=== PATIENT | male | born 1970 | race Caucasian/White ===

== ENCOUNTER → 2018-04-19 | Outpatient (CLI) | payer BC ==
[2018-04-19 15:08] LABS: BASO # 0.1 10^3/uL (0.0-0.2); BASO % 0.5 % (0.0-1.0); EOS # 0.3 10^3/uL (0.0-0.50); EOS % 2.7 % (0.0-3.0); HEMATOCRIT 46.4 % (42.0-52.0); HEMOGLOBIN 15.5 g/dl (13.5-17.5); IMMATURE GRANULOCYTE % 0.3 % (0-3.0); LYMPH # 3.4 10^3/uL (1.5-4.5); LYMPH % 28.6 % (24.0-44.0); MEAN CORPUSCULAR HEMOGLOBIN 29.9 pg (27.0-33.0); MEAN CORPUSCULAR HGB CONC 33.4 g/dl (32.0-36.5); MEAN CORPUSCULAR VOLUME 89.6 fl (80.0-96.0); MONO % 8.1 % (0.0-5.0); NEUTROPHILS # 7.1 10^3/uL (1.8-7.7); NEUTROPHILS % 59.8 % (36.0-66.0); PLATELET COUNT, AUTOMATED 333 10^3/uL (150-450); RED BLOOD COUNT 5.18 10^6/uL (4.30-6.10); WHITE BLOOD COUNT 11.8 10^3/uL (4.0-10.0)
[2018-04-19 15:36] LABS: URIC ACID 4.4 MG/DL (3.5-7.2)
== END ==
LOC: M WUC 11:34
DX: M25.761 Osteophyte, right knee (principal); M25.561 Pain in right knee
CPT/HCPCS: 84550

== ENCOUNTER 2021-04-23 14:46 | Emergency (ER) | payer BC, MEDICAID, OTHER, SELFPAY ==
[~2021-04-23] VITALS: Ht 177.8 cm; Wt 102.4 kg
[~2021-04-23 14:46] MED LIST: NO MEDICATIONS
--- OUTSIDE RECORDS SUMMARY | 2021-04-23 14:54 | CCD ---
Author Author [facility] Organization [facility] Address Unknown Phone Unavailable Care Team Providers Care Medtronics Technician Name Role Phone LUCI RENDON MD Unavailable Unavailable LUCI RENDON MD Unavailable Unavailable LUCI RENDON MD Unavailable Unavailable LUCI RENDON MD Unavailable Unavailable LUCI RENDON MD Unavailable Unavailable LUCI RENDON MD Unavailable Unavailable LUCI RENDON MD Unavailable Unavailable LUCI RENDON MD Unavailable Unavailable LUCI RENDON MD Unavailable Unavailable LUCI RENDON MD Unavailable Unavailable LUCI RENDON MD Unavailable Unavailable LUCI RENDON MD Unavailable Unavailable LUCI RENDON MD Unavailable Unavailable LUCI RENDON MD Unavailable Unavailable LUCI RENDON MD Unavailable Unavailable LUCI RENDON MD Unavailable Unavailable [place], Dee Giovanna PA Unavailable Unavailable [place], Dee Giovanna PA Unavailable Unavailable [place], Dee Giovanna PA Unavailable Unavailable [place], Dee Giovanna PA Unavailable Unavailable [place], Dee Giovanna PA Unavailable Unavailable [place], Dee Giovanna PA Unavailable Unavailable [place], Dee Giovanna PA Unavailable Unavailable [place], Dee Giovanna PA Unavailable Unavailable [place], Ede Giovanna PA Unavailable Unavailable [place], Dee Giovanna PA Unavailable Unavailable Re-disclosure Warning The records that you are about to access may contain information from federally-assisted alcohol or drug abuse programs. If such information is present, then the following federally mandated warning applies: This information has been disclosed to you from records protected by federal confidentiality rules (42 CFR part 2). The federal rules prohibit you from making any further disclosure of this information unless further disclosure is expressly permitted by the written consent of the person to whom it pertains or as otherwise permitted by 42 CFR part 2. A general authorization for the release of medical or other information is NOT sufficient for this purpose. The Federal rules restrict any use of the information to criminally investigate or prosecute any alcohol or drug abuse patient.The records that you are about to access may contain highly sensitive health information, the redisclosure of which is protected by Article 27-F of the [facility] Public Health law. If you continue you may have access to information: Regarding HIV / AIDS; Provided by facilities licensed or operated by the [facility] Office of Mental Health; or Provided by the [facility] Office for People With Developmental Disabilities. If such information is present, then the following [facility] mandated warning applies: This information has been disclosed to you from confidential records which are protected by state law. State law prohibits you from making any further disclosure of this information without the specific written consent of the person to whom it pertains, or as otherwise permitted by law. Any unauthorized further disclosure in violation of state law may result in a fine or mcfp sentence or both. A general authorization for the release of medical or other information is NOT sufficient authorization for further disc losure. Allergies and Adverse Reactions Type Description Substance Reaction Status Data Source(s ) Drug allergy No Known Allergies No Known Allergies brettapproved [facility] Primary Care Family History Family Member Name Family Member Gender Family Member Status Date o f Status Description Data Source(s) Unknown Male Problem MEDENT ([facility]) Unknown Unknown Problem [facility] ([facility]) Encounters Encounter Providers Location Date Indications Data Source(s ) Outpatient Attender: LUCI RENDON MD 2020 01:30:00 PM EST - 06/11/2020 11:59:00 PM EST brettapproved [facility] Primary Care Patient discharged. Outpatient Attender: Giovanna avalos 03/26/2020 08:35:00 AM EST [facility] ([facility]) Medications No Information Insurance Providers Payer name Policy type / Coverage type Policy ID Covered republican ID Covered republican's relationship to gomez Policy Gomez Plan Information OTHER B [id number] Self [id number] POMCO U [id number] Self [id number] [place] (pr) Medigap Part B [id number] Family Dependent [id number] OTHER B [id number] Self [id number] 1 OTHER B [id number] Self [id number] OTHER B [id number] Self [id number] [place] BC[place] O [id number] 1 [id number] OTHER B [id number] Self [id number] OTHER B [id number] Self [id number] COMM [id number] Self [id number] COMM [id number] Self [id number] 1 [id number] [id number] OTHER B [id number] Self [id number] Veterans Choice PRG-Vacaa Medigap Part B [id number] Self [id number] [place] [id number] Self [id number] [place]LL[place] BCBS B [id number] S [id number] BCBS/Excellus Commercial [id number] Self [id number] BCBS [place] 306/806 [id number] SP [id number] POMCO [id number] WI2 [id number] [place] Commercial [id number] Family Dependent SELF PAY UNAVAILABLE SP UNAVAILA BLE BCBS LINUS O [id number] SP [id number] Problems, Conditions, and Diagnoses No Information Surgeries/Procedures Procedure Description Date Indications Data Source(s) APPLICATION SHORT ARM SPLINT FOREARM-HAND STATIC 03/26 12:00:00 AM EST MEDENT ([facility]) Results ID Date Data Source [id number] 06/24/2020 12:00:00 AM EST [place] Name Value Range Interpretation Code Description Data Chante rce(s) Supporting Document(s) 2019 Novel Coronavirus RNA Not Detected [facility] by [facility]. Procedure Social History Code Duration Value Status Description Data Source(s ) Smoking 03/26/2020 12:00:00 AM EST Patient has never smoked co mpleted Patient has never smoked MEDENT ([facility]) Vital Signs ID Date Data Source UNK Name Value Range Interpretation Code Description Data Source(s) Systolic blood pressure 153 mm[Hg] 153 mm[Hg] M EDENT ([facility]) Diastolic blood pressure 85 mm[Hg] 85 mm[Hg] MEDENT ([facility]) Body weight 214.00 [lb_av] 214.00 [lb_av] MEDEN T ([facility]) Heart rate 76 /min 76 /min [facility] ([facility]) Respiratory rate 16 /min 16 /min [facility] ( [facility]) Oxygen saturation in Arterial blood by Pulse oximetry 98 % 98 % [facility] ([facility]) Body temperature 98.1 [degF] 98.1 [degF] [facility] ([facility])
[2021-04-23] MEDS ORDERED: ROSU40TA4 PO (14:56)
--- NOTE | 2021-04-23 16:40 | ECGEPIP ---
[facility] - ED Test Date: 2021-04-23 Pat Name: ELSI WELLINGTON Department: Room: - Gender: Male Visual Basic .Net Developer: GUSTABO : 1970 Requested By: Nuzhat Kiser Order Number: [id number] Reading MD: Nuzhat Kiser Measurements Intervals [place] Rate: 81 P: 19 NV: 162 QRS: 29 QRSD: 104 T: 11 QT: 384 QTc: 446 Interpretive Statements Normal sinus rhythm No prior Electronically Signed on 04-23-2021 16:40:06 EST by Nuzhat Kiser
[2021-04-23] MEDS ORDERED: NS 1,000 ML IV ONE (16:55)
[2021-04-23] MEDS ORDERED: PANTOPRAZOLE 40MG VIAL (C9113 PER 1) IV ONE (16:55)
[2021-04-23 17:13] LABS: BASO # 0.1 10^3/uL (0.0-0.2); BASO % 0.8 % (0.0-1.0); EOS # 1.1 10^3/uL (0.0-0.5); EOS % 7.9 % (0.0-3.0); HEMATOCRIT 48.2 % (42.0-52.0); HEMOGLOBIN 16.3 g/dl (13.5-17.5); LYMPH # 3.1 10^3/uL (1.5-5.0); LYMPH % 22.3 % (24.0-44.0); MEAN CORPUSCULAR HGB CONC 33.8 g/dl (32.0-36.5); MEAN CORPUSCULAR VOLUME 88.6 fl (80.0-96.0); MONO # 0.7 10^3/uL (0.0-0.8); MONO % 4.9 % (2.0-8.0); NEUTROPHILS # 8.9 10^3/uL (1.5-8.5); NEUTROPHILS % 63.8 % (36.0-66.0); PLATELET COUNT, AUTOMATED 313 10^3/uL (150-450); RED BLOOD COUNT 5.44 10^6/uL (4.30-6.10)
--- OUTSIDE RECORDS SUMMARY | 2021-04-23 17:19 | CCD ---
Author Author [facility] Organization [facility] Address Unknown Phone Unavailable Care Team Providers Care Promotional Demonstrator Name Role Phone LUCI RENDON MD Unavailable [...] is protected by Article 27-F of the [facility] Public Health law. If you continue you may have access to information: Regarding HIV / AIDS; Provided by facilities licensed or operated by the [facility] Office of Mental Health; or Provided by the [facility] Office for People With Developmental Disabilities. If such information is present, then the following [facility] mandated warning applies: This information has been [...] law may result in a fine or custodial sentence or both. A general authorization for the release of medical or other information is NOT sufficient authorization for further disc losure. Allergies and Adverse Reactions Type Description Substance Reaction Status Data Source(s ) Drug allergy No Known Allergies No Known Allergies Handpay [facility] Primary Care Family History Family Member Name Family Member Gender Family Member Status Date o f Status Description Data Source(s) Unknown Male Problem MEDENT ([facility]) Unknown Unknown Problem [facility] ([facility]) Encounters Encounter Providers Location Date Indications Data Source(s ) Outpatient Attender: LUCI RENDON MD 2020 01:30:00 PM EST - 06/11/2020 11:59:00 PM EST [facility] Primary Care Patient discharged. Outpatient Attender: Giovanna avalos 03/26/2020 08:35:00 AM EST [facility] ([facility]) Medications No Information Insurance Providers Payer name Policy type / Coverage type Policy ID Covered alliance party ID Covered alliance party's relationship to gomez Policy Gomez Plan Information OTHER B [id number] Self [id number] POMCO U [id number] Self [id number] [place] (pr) Medigap Part B [id number] Family Dependent [id number] OTHER B [id number] Self [id number] 1 OTHER B [id number] Self [id number] OTHER B [id number] Self [id number] BCBS [place] BCBS O [id number] OTHER B [id number] Self [id number] OTHER B [id number] Self [id number] COMM [id number] Self [id number] COMM [id number] Self [id number] 1 [facility] MCDO [id number] SP [id number] [id number] BCBS LINUS O [id number] SP [id number] OTHER B [id number] Self [id number] Veterans Choice PRG-Vacaa Medigap Part B [id number] Self [id number] [place] [id number] Self [id number] EXCELL[place] BCBS B [id number] S [id number] BCBS/Excellus Commercial [id number] Self [id number] BCBS OF [place]AT[place] 306/806 [id number] SP [id number] POMCO [id number] WI2 [id number] [employer] Commercial [id number] Family Dependent SELF PAY UNAVAILABLE SP UNAVAILA BLE Problems, Conditions, and Diagnoses No Information Surgeries/Procedures Procedure Description Date Indications Data Source(s) APPLICATION SHORT ARM SPLINT FOREARM-HAND STATIC 03/26 12:00:00 AM EST [facility] Results ID Date Data Source [facility]-[id number] 06/24/2020 12:00:00 AM EST [place] Name Value Range Interpretation Code Description Data Chante rce(s) Supporting Document(s) 2019 Novel Coronavirus RNA Not Detected [facility] This lab was ordered by [facility] and reported by [facility] Covid Manual Uploads. Procedure Social History Code Duration Value Status Description Data Source(s ) Smoking 03/26/2020 12:00:00 AM EST Patient has never smoked co mpleted Patient has never smoked MEDENT ([facility]) Vital Signs ID Date Data Source UNK Name Value Range Interpretation Code Description Data Source(s) Systolic blood pressure 153 mm[Hg] 153 mm[Hg] M EDENT ([facility]) Diastolic blood pressure 85 mm[Hg] 85 mm[Hg] MEDENT ([facility]) Heart rate 76 /min 76 /min MEDENT ([facility]) Respiratory rate 16 /min 16 /min [facility] ( [facility]) Oxygen saturation in Arterial blood by Pulse oximetry 98 % 98 % [facility] ([facility]) Body temperature 98.1 [degF] 98.1 [degF] MEDENT ([facility]) Body weight 214.00 [lb_av] 214.00 [lb_av] MEDEN T ([facility])
[2021-04-23 17:42] LABS: ALBUMIN 3.9 GM/DL (3.2-5.2); ALT/SGPT 44 U/L (12-78); BILIRUBIN,DIRECT 0.2 MG/DL (0.0-0.2); BILIRUBIN,TOTAL 0.7 MG/DL (0.2-1.0); BLOOD UREA NITROGEN 13 MG/DL (7-18); CALCIUM LEVEL 9.1 MG/DL (8.5-10.1); CARBON DIOXIDE LEVEL 27 MEQ/L (21-32); CHLORIDE LEVEL 104 MEQ/L (98-107); CREATININE FOR GFR 0.87 MG/DL (0.70-1.30); GLOMERULAR FILTRATION RATE > 60.0 (>60); GLUCOSE, FASTING 85 MG/DL (70-100); LIPASE 100 U/L (73-393); POTASSIUM SERUM 4.1 MEQ/L (3.5-5.1); SODIUM LEVEL 139 MEQ/L (136-145); TOTAL PROTEIN 7.5 GM/DL (6.4-8.2)
--- NOTE | 2021-04-23 17:44 | REP ---
INDICATION: epigastric pain, post prandial. COMPARISON: None. TECHNIQUE: Right upper quadrant sonography. FINDINGS: Scanning through the right upper quadrant of the abdomen demonstrates a normal sized, thin-walled gallbladder without evidence of stone or polyp. Common bile duct is normal measuring 0.3 cm in greatest diameter. No focal liver lesion is seen. Liver size is normal. The pancreas is obscured by abdominal gas. No right renal abnormality is seen. There is no evidence of ascites. The right kidney measures 13.4 x 5.6 x 6.1 cm. IMPRESSION: Negative right upper quadrant sonography. <Electronically signed by Selvin Escamilla > 04/23/21 [id number]
[2021-04-23] MEDS ORDERED: ISOVUE-370 76% 100ML VIAL As Ordered ONE (18:05)
--- NOTE | 2021-04-23 20:17 | REPVR ---
PROCEDURE INFORMATION: Exam: CT Abdomen And Pelvis With Contrast Exam date and time: 04/23/2021 6:48 PM Age: 50 years old Clinical indication: Abdominal pain; Localized; Upper; Additional info: Upper abd pain, leukocytosis, guarding TECHNIQUE: Imaging protocol: Computed tomography of the abdomen and pelvis with contrast. Axial, coronal and sagittal reformatted images were created and reviewed. Radiation optimization: All CT scans at this facility use at least one of these dose optimization techniques: automated exposure control; mA and/or kV adjustment per patient size (includes targeted exams where dose is matched to clinical indication); or iterative reconstruction. Contrast material: ISOVUE 370; Contrast volume: 100 ml; Contrast route: INTRAVENOUS (IV); COMPARISON: GALLBLADDER US 04/23/2021 5:19 PM FINDINGS: Lungs: Minimal linear stranding and groundglass at the lung bases, likely due to atelectasis and/or scarring. Mediastinal space: Mild nonspecific distal esophageal wall thickening, suggesting chronic reflux/esophagitis. Liver: Diffuse hepatic steatosis. Gallbladder and bile ducts: No radiodense gallstones. No biliary ductal dilatation. Pancreas: Unremarkable. Spleen: Unremarkable. Adrenal glands: Normal. No mass. Kidneys and ureters: Left renal cortical scarring. Nonobstructing left renal calculi. No hydronephrosis. Stomach and bowel: Questionable mild nonspecific wall thickening of the duodenal sweep and proximal jejunal loops. No obstruction. No pneumatosis. Appendix: Status post appendectomy. Intraperitoneal space: No free fluid. No organized fluid collection. No free air. Vasculature: Unremarkable. No aneurysm. Lymph nodes: No pathologically enlarged lymph nodes. Urinary bladder: Mild circumferential urinary bladder wall thickening, likely secondary to underdistention. Reproductive: Unremarkable. Bones/joints: No acute osseous abnormality. Osteopenia. Mild degenerative changes. Soft tissues: Small, fat containing umbilical hernia. IMPRESSION: 1. Questionable mild nonspecific wall thickening of the duodenal sweep and proximal jejunal loops, possibly secondary to nonspecific enteritis. 2. Additional findings, as above. Electronically signed by: Kyle Hodges On 04/23/2021 20:16:18 PM
[2021-04-23] MEDS ORDERED: CARA1TAB6 PO (20:32)
[2021-04-23] MEDS ORDERED: PROT1TAB2 PO (20:32)
[2021-04-23 20:35] VITALS: BP 131/72
--- NOTE | 2021-04-24 07:46 | ED PDOC ---
Post-Departure Follow-Up radiology report faxed to randal Loera Sarah MD Apr 24, 2021 07:46
== END 2021-04-23 20:41 | disposition home or self-care (01) ==
LOC: M ED 14:46
DX: K27.9 Peptic ulcer, site unspecified, unspecified as acute or chronic, without hemorrhage or perforation (principal); E78.5 Hyperlipidemia, unspecified; Z79.899 Other long term (current) drug therapy
CPT/HCPCS: 74177; 76705; 80048; 80076; 83605; 83690; 85025; 93005; 96361; 96374; 99284; C9113; Q9967

== ENCOUNTER 2021-06-05 09:59 | Emergency (ER) | payer MEDICAID ==
[~2021-06-05] VITALS: Ht 177.8 cm; Wt 98.3 kg
[~2021-06-05 09:59] MED LIST changes: +CARA1TAB6 PO; +PROT1TAB2 PO; +ROSU40TA4 PO
[2021-06-05] MEDS ORDERED: SUMA100T2 (10:06)
[2021-06-05] MEDS ORDERED: IBUP80TA PO (13:05)
[2021-06-05] MEDS ORDERED: ACET-897 PO (13:05)
[2021-06-05] MEDS ORDERED: IBUPROFEN 800 MG TAB PO ONE (13:10)
[2021-06-05 13:20] VITALS: BP 139/89
== END 2021-06-05 13:22 | disposition home or self-care (01) ==
LOC: M ED 09:59
DX: R07.9 Chest pain, unspecified (principal); R51.9 Headache, unspecified; U07.1 COVID-19; K21.9 Gastro-esophageal reflux disease without esophagitis; Z79.899 Other long term (current) drug therapy

== ENCOUNTER 2022-12-18 11:21 | Emergency (ER) | payer MEDICAID, OTHER ==
[~2022-12-18] VITALS: Ht 177.8 cm; Wt 103.6 kg
[~2022-12-18 11:21] MED LIST changes: +ACET-897 PO; +IBUP80TA PO; +SUMA100T2
[2022-12-18 12:40] LABS: RSV AMPLIFICATION NEGATIVE (NEGATIVE)
[2022-12-18] MEDS ORDERED: ISOVUE-370 76% 100ML VIAL As Ordered ONE (15:24)
[2022-12-18 15:28] LABS: BASO # 0.1 10^3/uL (0.0-0.2); BASO % 0.5 % (0.0-1.0); EOS # 0.7 10^3/uL (0.0-0.5); EOS % 5.4 % (0.0-3.0); HEMATOCRIT 46.5 % (42.0-52.0); HEMOGLOBIN 16.2 g/dl (13.5-17.5); LYMPH # 2.8 10^3/uL (1.5-5.0); LYMPH % 20.9 % (24.0-44.0); MEAN CORPUSCULAR HEMOGLOBIN 30.5 pg (27.0-33.0); MEAN CORPUSCULAR HGB CONC 34.8 g/dl (32.0-36.5); MEAN CORPUSCULAR VOLUME 87.6 fl (80.0-96.0); MONO % 7.2 % (2.0-8.0); NEUTROPHILS % 65.8 % (36.0-66.0); PLATELET COUNT, AUTOMATED 297 10^3/uL (150-450); RED BLOOD COUNT 5.31 10^6/uL (4.30-6.10); WHITE BLOOD COUNT 13.6 10^3/uL (4.0-10.0)
[2022-12-18 15:54] LABS: CK-MB VALUE MASS 1.4 NG/ML (<3.6)
[2022-12-18 15:56] LABS: BLOOD UREA NITROGEN 13 MG/DL (9-23); CALCIUM LEVEL 8.5 MG/DL (8.5-10.1); CARBON DIOXIDE LEVEL 27 MMOL/L (20-31); CHLORIDE LEVEL 104 MMOL/L (98-107); CPK CREATINE PHOSPHOKINASE 357 U/L (46-171); CREATININE FOR GFR 0.83 MG/DL (0.70-1.30); GLOMERULAR FILTRATION RATE > 60.0 (>56); GLUCOSE, FASTING 92 MG/DL (60-100); MB/CK RELATIVE INDEX 0.39 (< OR =4); POTASSIUM SERUM 3.8 MMOL/L (3.5-5.1); SODIUM LEVEL 139 MMOL/L (136-145)
[2022-12-18 16:04] LABS: ERYTHROCYTE SEDIMENTATION RATE 44 mm/hr (0-20)
[2022-12-18] MEDS ORDERED: BENZ200C70 PO (16:50)
[2022-12-18 17:18] VITALS: BP 132/99; TEMP 97.3; O2SAT 99
== END 2022-12-18 17:20 | disposition home or self-care (01) ==
LOC: M ED 11:21
DX: J20.9 Acute bronchitis, unspecified (principal); I10 Essential (primary) hypertension; K21.9 Gastro-esophageal reflux disease without esophagitis; F41.9 Anxiety disorder, unspecified; F32.A Depression, unspecified; Z79.899 Other long term (current) drug therapy
CPT/HCPCS: 36415; 71046; 71275; 73620; 80047; 80048; 82550; 82553; 83605; 84484; 85025; 85652; 86140; 87631; 93005; 99284; Q9967